=== PATIENT | female | born 1965 | race Two or more races ===

== ENCOUNTER → 2018-10-29 | Outpatient (REF) | payer MEDICAID, OTHER, SELFPAY ==
[2018-10-29 12:17] LABS: HEMOGLOBIN A1c 10.3 %
[2018-10-29 12:31] LABS: ALBUMIN 3.3 GM/DL (3.2-5.2); ALT/SGPT 18 U/L (12-78); BILIRUBIN,TOTAL 0.3 MG/DL (0.2-1.0); BLOOD UREA NITROGEN 13 MG/DL (7-18); CALCIUM LEVEL 9.3 MG/DL (8.5-10.1); CARBON DIOXIDE LEVEL 27 MEQ/L (21-32); CHLORIDE LEVEL 102 MEQ/L (98-107); CHOLESTEROL LEVEL 241 MG/DL (<200); CHOLESTEROL RISK RATIO 4.228 (<5); GLOMERULAR FILTRATION RATE > 60.0 (>51); GLUCOSE, FASTING 311 MG/DL (70-100); HDL CHOLESTEROL 57 MG/DL (>40); LDL CHOLESTEROL 148 MG/DL (<100); NON-HDL-C 184 MG/DL; POTASSIUM SERUM 4.7 MEQ/L (3.5-5.1); SODIUM LEVEL 138 MEQ/L (136-145); TOTAL PROTEIN 8.1 GM/DL (6.4-8.2); TRIGLYCERIDES LEVEL 178 MG/DL (<150)
== END ==
LOC: M SFHCLERA 09:16
PROVIDERS: ATTEND Nurse Practitioner Family
DX: Z00.00 Encounter for general adult medical examination without abnormal findings (principal); E11.65 Type 2 diabetes mellitus with hyperglycemia

== ENCOUNTER → 2018-11-04 | Outpatient (CLI) | payer MEDICAID, OTHER, SELFPAY ==
--- NOTE | 2018-11-04 14:19 | REPMRS ---
Patient History The patient states she has not had a clinical breast exam in over a year. Family history of breast cancer at age 59 in mother. Digital Mammo Screening Bilat: November 04, 2018 - Exam #: [id number] Bilateral CC and MLO view(s) were taken. Technologist: Lori Cabral, Technologist No prior studies available for comparison. FINDINGS: There are scattered fibroglandular densities. There is no evidence of dominant mass, architectural distortion, or clustered microcalcification typical of malignancy. 3-D tomosynthesis shows no additional findings. Assessment: BI-RADS/ACR category 1 mammogram. Negative Mammogram. Recommendation Routine screening mammogram of both breasts in 1 year (for women over age 40). This patient's Lifetime Breast Cancer RIsk is estimated at 13.1 %. This mammogram was interpreted with the aid of an FDA-approved computer-aided dectection system. Electronically Signed By: Samuel Worthington MD 11/04/18 1690
== END ==
LOC: M RAD 13:12
PROVIDERS: ATTEND Nurse Practitioner Family
DX: Z12.31 Encounter for screening mammogram for malignant neoplasm of breast (principal); Z80.3 Family history of malignant neoplasm of breast

== ENCOUNTER → 2018-11-10 | Outpatient (CLI) | payer MEDICAID, SELFPAY ==
--- NOTE | 2018-11-10 10:43 | REP ---
LEFT KNEE SERIES: Five views. HISTORY: Pain in the left knee. FINDINGS: Five views of the left knee demonstrate vascular calcification. There is mild patellar spurring. Bones, joints and soft tissues are otherwise unremarkable. IMPRESSION: Mild osteoarthritic spurring of the patella. Otherwise negative. Vascular calcification is observed. Electronically Signed by Hossein Worthington MD 11/10/2018 01:37 P
== END ==
LOC: M LRY 09:54
PROVIDERS: ATTEND Nurse Practitioner Family
DX: M25.562 Pain in left knee (principal)

== ENCOUNTER 2019-03-27 10:20 | Day surgery (SDC) | payer OTHER ==
[~2019-03-27] VITALS: Ht 160 cm; Wt 82.1 kg
[~2019-03-27 10:20] MED LIST: AMLO5TAB6 PO; ASPI81TA85 PO; GLYB5TA PO; INVO100T PO; IRON65TA2 PO; NIFE10CA2 PO; XALA0.007 OU
[2019-03-27] MEDS ORDERED: NS 1,000 ML IV ONE (10:45)
[2019-03-27] MEDS ORDERED: PHENYLephrine HCL 500 MCG/5 ML (100MCG/ML) SYRINGE (J2370) As Ordered ONE (12:42)
[2019-03-27] MEDS ORDERED: LIDOCAINE 2% INJ 100 MG/5 ML SDV (FOR ANES.) As Ordered ONE (12:42)
[2019-03-27] MEDS ORDERED: PROPOFOL 200 MG/20 ML VIAL As Ordered ONE (12:42)
--- NOTE | 2019-03-27 12:46 | ROOR ---
Patient Name: Raisa Sevilla Procedure Date: 03/27/2019 12:09 PM Date of : 1965 Age: 53 Room: [facility] Gender: Female Note Status: Finalized Procedure: Upper GI endoscopy Indications: Heartburn, Suspected gastro-esophageal reflux disease Providers: Jimmy Zamora MD Referring MD: Jessy KENNEY Requesting Provider: Medicines: Monitored Anesthesia Care Complications: No immediate complications. Procedure: Pre-Anesthesia Assessment: - Prior to the procedure, a History and Physical was performed, and patient medications and allergies were reviewed. The patient is competent. The risks and benefits of the procedure and the sedation options and risks were discussed with the patient. All questions were answered and informed consent was obtained. Patient identification and proposed procedure were verified by the physician, the nurse and the anesthesiologist in the procedure room. Mental Status Examination: alert and oriented. Airway Examination: normal oropharyngeal airway and neck mobility. Respiratory Examination: clear to auscultation. CV Examination: normal. Prophylactic Antibiotics: The patient does not require prophylactic antibiotics. Prior Anticoagulants: The patient has taken no previous anticoagulant or antiplatelet agents. ASA Grade Assessment: II - A patient with mild systemic disease. After reviewing the risks and benefits, the patient was deemed in satisfactory condition to undergo the procedure. The anesthesia plan was to use monitored anesthesia care (MAC). Immediately prior to administration of medications, the patient was re-assessed for adequacy to receive sedatives. The heart rate, respiratory rate, oxygen saturations, blood pressure, adequacy of pulmonary ventilation, and response to care were monitored throughout the procedure. The physical status of the patient was re-assessed after the procedure. The Endoscope was introduced through the mouth, and advanced to the second part of duodenum. The upper GI endoscopy was accomplished without difficulty. The patient tolerated the procedure well. Findings: LA Grade C (one or more mucosal breaks continuous between tops of 2 or more mucosal folds, less than 75% circumference) esophagitis with no bleeding was found 36 cm from the incisors. Biopsies were taken with a cold forceps for histology. Verification of patient identification for the specimen was done by the physician and nurse using the patient's name, date and medical record number. Estimated blood loss was minimal. Scattered moderate inflammation characterized by erosions, erythema, friability and granularity was found in the gastric antrum and in the prepyloric region of the stomach. Biopsies were taken with a cold forceps for Helicobacter pylori testing. Scattered mild inflammation characterized by erythema, friability and granularity was found in the duodenal bulb. No gross lesions were noted in the second portion of the duodenum. Impression: - LA Grade C reflux esophagitis. Biopsied. - Gastritis. Biopsied. - Duodenitis. - No gross lesions in the second portion of the duodenum. Recommendation: - Patient has a contact number available for emergencies. The signs and symptoms of potential delayed complications were discussed with the patient. Return to normal activities tomorrow. Written discharge instructions were provided to the patient. - Resume previous diet. - Continue present medications. 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 - Follow an antireflux regimen. - Repeat upper endoscopy in 3 months to check healing. - Return to GI clinic in [facility] (address [address], [address], [place], [facility]) in 4 -- 6 weeks. Please call GI clinic @ [phone] for apppointment date and time. - Return to primary care physician. Jimmy Zamora MD Jimmy Zamora MD 03/27/2019 12:46:47 PM Electronically signed by Jimmy Zamora MD Number of Addenda: 0 Note Initiated On: 03/27/2019 12:09 PM Estimated Blood Loss: Estimated blood loss was minimal.
--- NOTE | 2019-03-27 12:51 | ROOR ---
Patient Name: Raisa Sevilla Procedure Date: 03/27/2019 12:10 PM Date of : 1965 Age: 53 Room: [facility] Gender: Female Note Status: Finalized Procedure: Colonoscopy Indications: Screening for colorectal malignant neoplasm Providers: Jimmy Zamora MD Referring MD: Jessy KENNEY Requesting Provider: Medicines: Monitored Anesthesia Care Complications: No immediate complications. Procedure: Pre-Anesthesia Assessment: - Prior to the procedure, a History and Physical was performed, and patient medications and allergies were reviewed. The patient is competent. The risks and benefits of the procedure and the sedation options and risks were discussed with the patient. All questions were answered and informed consent was obtained. Patient identification and proposed procedure were verified by the physician, the nurse and the anesthesiologist in the procedure room. Mental Status Examination: alert and oriented. CV Examination: normal. Prophylactic Antibiotics: The patient does not require prophylactic antibiotics. Prior Anticoagulants: The patient has taken no previous anticoagulant or antiplatelet agents. After reviewing the risks and benefits, the patient was deemed in satisfactory condition to undergo the procedure. The anesthesia plan was to use monitored anesthesia care (MAC). Immediately prior to administration of medications, the patient was re-assessed for adequacy to receive sedatives. The heart rate, respiratory rate, oxygen saturations, blood pressure, adequacy of pulmonary ventilation, and response to care were monitored throughout the procedure. The physical status of the patient was re-assessed after the procedure. The Colonoscope was introduced through the anus and advanced to the terminal ileum, with identification of the appendiceal orifice and IC valve. The colonoscopy was performed without difficulty. The patient tolerated the procedure well. The quality of the bowel preparation was good. The terminal ileum, ileocecal valve, appendiceal orifice, and rectum were photographed. Scope insertion time was 4 minutes. Scope withdrawal time was 10 minutes. The total duration of the procedure was 14 minutes. Findings: The perianal and digital rectal examinations were normal. The terminal ileum appeared normal. Multiple small and large-mouthed diverticula were found from sigmoid to ascending colon. There was no evidence of diverticular bleeding. Non-bleeding external and internal hemorrhoids were found during retroflexion. The hemorrhoids were medium-sized. No other significant abnormalities were identified in a careful examination of the remainder of the colon. Impression: - The examined portion of the ileum was normal. - Moderate diverticulosis from sigmoid to ascending colon. There was no evidence of diverticular bleeding. - Non-bleeding external and internal hemorrhoids. - No specimens collected. Recommendation: - Patient has a contact number available for emergencies. The signs and symptoms of potential delayed complications were discussed with the patient. Return to normal activities tomorrow. Written discharge instructions were provided to the patient. - High fiber diet. - Continue present medications. - Use fiber, for example Citrucel, Fibercon, Konsyl or Metamucil. - Repeat colonoscopy in 10 years for screening purposes. - Return to GI clinic in [facility] (address [address], [address], [place], [facility] [place]) in 4 -- 6 weeks. Please call GI clinic @ [phone] for apppointment date and time. - Return to primary care physician. Jimmy Zamora MD Jimmy Zaomra MD 03/27/2019 12:50:29 PM Electronically signed by Jimmy Zamora MD Number of Addenda: 0 Note Initiated On: 03/27/2019 12:10 PM Estimated Blood Loss: Estimated blood loss was minimal.
[2019-03-27 13:10] VITALS: BP 150/87
== END 2019-03-27 13:35 | disposition home or self-care (01) ==
LOC: M OPP 10:20
PROVIDERS: ATTEND Internal Medicine Gastroenterology
DX: Z12.11 Encounter for screening for malignant neoplasm of colon (principal); K64.8 Other hemorrhoids; K57.30 Diverticulosis of large intestine without perforation or abscess without bleeding; K21.0 Gastro-esophageal reflux disease with esophagitis; K29.70 Gastritis, unspecified, without bleeding; K29.80 Duodenitis without bleeding; R12 Heartburn; E11.9 Type 2 diabetes mellitus without complications; Z79.82 Long term (current) use of aspirin; Z79.84 Long term (current) use of oral hypoglycemic drugs; Z79.899 Other long term (current) drug therapy
CPT/HCPCS: 43239; 45378; 88305; J2370